=== PATIENT | female | born 1950 | race Caucasian/White ===

== ENCOUNTER 2016-10-30 10:26 | Emergency (ER) | payer OTHER ==
[2016-10-30 11:54] VITALS: BP 137/82
--- NOTE | 2016-10-30 12:03 | ED ---
GI/ HPI - HPI Summary HPI Summary: Pt present with 24 hours of dysuria and hematuria. Pt reports mild hematuria without clots this morning. PT reports little urine with each effort. Mild back low discomfort. Mild stomach achiness. No nausea, vomiting No fevers, chills. No vaginal discharge, odor. No h/o infections. Pt reports h/o proteinuria Pt's medications were reviewed with patient - History of Current Complaint Chief Complaint: UCGU Time Seen by Provider: 10/30/16 12:03 Stated Complaint: URINARY COMPLAINT Hx Obtained From: Patient Onset/Duration: Started Days Ago - yesterday Timing: Constant Severity: Mild Current Severity: None Location of Pain: Suprapubic Pain Characteristics: Aching, Burning Associated Signs and Symptoms: Positive: Back Pain, Hematuria, Dysuria. Negative: Weakness, Fever Aggravating Factor(s): Urination Alleviating Factor(s): Nothing - Allergy/Home Medications Allergies/Adverse Reactions: Allergies Allergy/AdvReac Type Severity Reaction Status Date / Time Alendronate [From Fosamax] Allergy See Comment Verified 10/30/16 11:41 Latex Allergy Rash And Verified 10/30/16 11:41 Itching Home Medications: Home Medications Albuterol HFA INHALER* [Ventolin HFA Inhaler*] 1 - 2 puff INH Q4H PRN 10/30/16 [ History Confirmed 10/30/16] Budesonide NASAL (NF) [Rhinocort Aqua (NF)] 1 spray BOTH NARES DAILY 10/30/16 [ History Confirmed 10/30/16] Fluticasone NASAL SPRAY 50MCG* [Flonase NASAL SPRAY 50MCG*] 2 spray BOTH NARES DAILY 10/30/16 [History Confirmed 10/30/16] Folic Acid TAB* [Folvite TAB*] 1 mg PO DAILY 10/30/16 [History Confirmed ] Hydroxychloroquine TAB* [Plaquenil TAB*] 200 mg PO BID 10/30/16 [History Confirmed 10/30/16] Lidocaine PATCH 5%* [Lidoderm 5% Patch*] 1 patch TRANSDERM DAILY PRN 10/30/16 [ History Confirmed 10/30/16] Magnesium Oxide TAB* [MagOx 400 TAB*] 500 mg PO QPM 10/30/16 [History Confirmed 10/30/16] Methotrexate TAB* 15 mg PO FR 10/30/16 [History Confirmed 10/30/16] ValACYclovir (*) [Valtrex 500 mg (*)] 500 mg PO BID 10/30/16 [History Confirmed 10/30/16] Vitamin E CAP* 400 unit PO QAM 10/30/16 [History Confirmed 10/30/16] PMH/Surg Hx/FS Hx/Imm Hx Previously Healthy: Yes Cardiovascular History: Denies: Hx Pacemaker/ICD Respiratory History: Reports: Hx Asthma Musculoskeletal History: Reports: Hx Rheumatoid Arthritis Psychiatric History: Denies: Hx Panic Disorder - Surgical History Surgery Procedure, Year, and Place: hysterectomy,bilateral vein stripping, lymphectomy neck, lt foot orif, cataracts, cholecystectomy Infectious Disease History: Yes Infectious Disease History: Reports: Hx Shingles - 2015 Denies: Traveled Outside the [place] in Last 30 Days - Family History Known Family History: Positive: Hypertension - Social History Lives: With Family Alcohol Use: Rare Alcohol Amount: 3 Substance Use Type: Reports: None Smoking Status (MU): Former Smoker Length of Time of Smoking/Using Tobacco: stopped "around 1979" Have You Smoked in the Last Year: No Review of Systems Constitutional: Negative Eyes: Negative ENT: Negative Cardiovascular: Negative Respiratory: Negative Positive: Abdominal Pain, Nausea Positive: burning, dysuria, frequency Musculoskeletal: Negative Skin: Negative Neurological: Negative Psychological: Normal All Other Systems Reviewed And Are Negative: Yes Physical Exam Triage Information Reviewed: Yes Vital Signs On Initial Exam: Initial Vitals Temp Pulse Resp BP Pulse Ox 99.1 F 88 16 137/82 98 10/30/16 11:37 10/30/16 11:37 10/30/16 11:37 10/30/16 11:37 10/30/16 11:37 Vital Signs Reviewed: Yes Appearance: Positive: Well-Appearing, No Pain Distress Skin: Positive: Warm, Skin Color Reflects Adequate Perfusion, Dry Head/Face: Positive: Normal Head/Face Inspection Eyes: Positive: Normal, POPEYE, Conjunctiva Clear ENT: Positive: Hearing grossly normal Neck: Positive: Supple, Nontender, No Lymphadenopathy Respiratory/Lung Sounds: Positive: Clear to Auscultation, Breath Sounds Present Cardiovascular: Positive: Normal, RRR. Negative: Murmur Abdomen Description: Positive: Nontender - mild suprapubic, LLQ pain - no guarding, no rebound, No Organomegaly, Soft, Bruit Bowel Sounds: Positive: Present Musculoskeletal: Positive: Normal, Strength/ROM Intact Neurological: Positive: Normal, Sensory/Motor Intact, Alert, Oriented to Person Place, Time Psychiatric: Positive: Normal AVPU Assessment: Alert - [place] Coma Scale Best Eye Response: 4 - Spontaneous Best Motor Response: 6 - Obeys Commands Best Verbal Response: 5 - Oriented Diagnostics - Vital Signs Vital Signs Temp Pulse Resp BP Pulse Ox 10/30/16 11:37 99.1 F 88 16 137/82 98 - Laboratory Lab Results: Lab Results 10/30/16 Range/Units 11:59 POC Urine Color Dark yellow POC Urine Clarity Turbid POC Urine pH 6.5 (5-9) POC Ur Specif [place] 1.020 (1.010-1.030) POC Urine Protein 3+ H (Negative) POC Ur Glucose (UA) Negative (Negative) POC Urine Ketones Negative (Negative) POC Urine Blood 3+ H (Negative) POC Urine Nitrite Negative (Negative) POC Urine Bilirubin 1+ H (Negative) POC Urine Urobilinogen 0.2 (Negative) POC U Leukocyte Esteras 3+ H (Negative) Lab Statement: Any lab studies that have been ordered have been reviewed, and results considered in the medical decision making process. GIGU Course/Dx - Course Assessment/Plan: PT with dysuria, hematuria, frequency x 24 hours. Pt with hematuria and mild low bacl pain today. No fevers, chills. Pt with UTI on testing. Will give pyridium, cipro. hydrate. motrin/apap. return precations discussed. Pcp 1 week - Diagnoses Provider Diagnoses: UTI (urinary tract infection) Discharge - Discharge Plan Condition: Stable Disposition: HOME Prescriptions: Ciprofloxacin HCl [Cipro 500 MG TAB] 500 mg PO DAILY #14 tab Phenazopyridine TAB* [Pyridium 100 mg TAB*] 100 mg PO TID PRN #9 tab PRN Reason: Pain Patient Education Materials: Urinary Tract Infection in Women (ED) Referrals: Barbra Bush MD [Primary Care Provider] - Additional Instructions: - Stay well hydrated. Drink plenty of non-alcoholic, non-caffinated beverages. - Take antibiotics as prescribed until gone - You have been prescribed a medication to help with the burning. This will make your urine bright orange - this is normal - Alternate ibuprofen (Advil, Motrin) and Tylenol every 3 hours for pain or fever. Take with food. Do NOT take for more than 4-5 days. - Contact your doctor on Monday to schedule a follow-up appointment. Contact your doctor or return for fevers, vomiting, increased or uncontrolled pain
== END 2016-10-30 12:34 | disposition home or self-care (01) ==
LOC: UCCORT 10:26
DX: N39.0 Urinary tract infection, site not specified (principal); R31.9 Hematuria, unspecified; J45.909 Unspecified asthma, uncomplicated; M06.9 Rheumatoid arthritis, unspecified; Z90.710 Acquired absence of both cervix and uterus; Z90.49 Acquired absence of other specified parts of digestive tract; Z98.49 Cataract extraction status, unspecified eye; Z87.891 Personal history of nicotine dependence
CPT/HCPCS: 81003; 87086; 99212; G0463